=== PATIENT | male | born 1960 | race Caucasian/White ===

== ENCOUNTER → 2019-07-01 13:24 | Outpatient (CLI) | payer OTHER, SELFPAY ==
[2019-07-01 13:43] LABS: Hematocrit 44.3 % (41-53); Hemoglobin 15.1 g/dL (13.5-17.5); Mean Corpuscular Hemoglobin 32.3 PG (26-34); Mean Corpuscular Volume 95.1 fL (80-100); Platelet Count 277 X10^3/uL (150-400); Red Blood Cell Count 4.66 X10^6/uL (4.5-5.9); Red Cell Distribution Width 13.2 % (11.6-14.8); White Blood Cell Count 8.7 X10^3/uL (4.5-11.0)
[2019-07-01 13:46] LABS: Appearance Urine UA CLEAR; Bilirubin Urine UA NEGATIVE (NEGATIVE); Color Urine UA YELLOW; Glucose Urine UA NEGATIVE (Negative); Ketones Urine UA NEGATIVE (NEGATIVE); Leukocyte Esterase Urine UA NEGATIVE (NEGATIVE); Nitrite Urine UA POSITIVE (Negative); Occult Blood Urine UA NEGATIVE (Negative); Protein Urine UA TRACE (Negative); Urobilinogen Urine UA 0.2 E.U./dL (0.2)
[2019-07-01 14:01] LABS: Neutrophils Absolute Manual 6699 /uL (3000-5900); Total Cells Counted 100
[2019-07-01 14:02] LABS: Anisocytosis 1+
[2019-07-01 14:51] LABS: Alanine Aminotransferase 25 IU/L (21-72); Albumin 4.4 g/dL (3.5-5.0); Albumin Globulin Ratio 1.8 (1.0-2.8); Alkaline Phosphatase 52 U/L (38-126); Aspartate Aminotransferase 21 IU/L (17-59); BUN Creatinine Ratio 22.2 (6-22); Bilirubin Total 1.1 mg/dL (0.2-1.3); Blood Urea Nitrogen 20 mg/dL (9-20); Calcium 9.5 mg/dL (8.4-10.2); Carbon Dioxide 28 mmol/L (22-32); Chloride 103 mmol/L (98-107); Cholesterol 239 mg/dL (140-199); Estimated Glomerular Filt Rate > 60.0 mL/min (>60); Globulin 2.5 g/dL (1.7-4.1); Glucose 102 mg/dL (70-100); HDL Cholesterol 103 mg/dL (40-60); HEMOLYSIS < 15 (0-50); LDL Cholesterol Calculated 118 mg/dL (<100); Sodium 141 mmol/L (137-145); Total Protein 6.9 g/dL (6.3-8.2); Triglycerides 88 mg/dL (35-150)
[2019-07-01 14:53] LABS: Amorphous Sediment Urine 2+; Bacteria Urine Many (>30); RBC Urine None Seen (0-5/HPF); Squamous Epithelial Cell Urine 1-5 /HPF (0-5/HPF); WBC Urine 0-1/HPF (0-5/HPF)
[2019-07-01 14:54] LABS: Culture Indicated Urine Specimen Cultured
[2019-07-01 15:20] LABS: Prostate Specific Antigen Scrn 2.63 ng/mL (0.1-4.0)
== END ==
PROVIDERS: PCP Family Medicine; Visit Provider Family Medicine
DX: N40.0 Benign prostatic hyperplasia without lower urinary tract symptoms (principal); R33.9 Retention of urine, unspecified; Z12.5 Encounter for screening for malignant neoplasm of prostate; Z13.220 Encounter for screening for lipoid disorders; Z13.29 Encounter for screening for other suspected endocrine disorder; Z51.81 Encounter for therapeutic drug level monitoring
CPT/HCPCS: 36415; 80053; 80061; 81003; 81015; 84443; 85025; 87077; 87086; 87147; 87186; G0103

== ENCOUNTER → 2019-07-14 13:14 | Outpatient (CLI) | payer OTHER, SELFPAY ==
--- NOTE | 2019-07-14 | DI.US.S_ITS ---
PROCEDURE: US RENAL COMPLETE INDICATIONS: URINARY RETENTION TECHNIQUE: Real-time scanning was performed of the kidneys and bladder, with image documentation. COMPARISON: None. FINDINGS: Kidneys: Kidneys are normal in size. Right kidney measures 9.8 cm long; left kidney measures 13.3 cm long. Right renal cortical thickness is 1.4 cm; left renal cortical thickness is 1.3 cm. Renal cortical echotexture is normal. Left kidney inferior pole 7 mm calculus. No definite hydronephrosis. Left kidney and mild pelviectasis versus small parapelvic cyst. No suspicious solid mass lesions. Bladder: Pre-void bladder volume is 100 mL. Post-void residual is 74 mL. Pre-void images demonstrate no intraluminal masses or stones. The bladder wall appears trabeculated. On pre-void images, bilateral ureteral jets are noted with color Doppler interrogation. Miscellaneous: No free pelvic fluid. Prostatomegaly with median lobe hypertrophy. Prostate measuring 6.1 x 7.2 x 4.9 cm, estimated volume of 110 cc. IMPRESSION: 1. Postvoid residual of 74 cc. 2. Marked prostatomegaly. 3. No hydroureter. Probable left extrarenal pelvis versus small parapelvic cyst. 4. Nonobstructing calculus in the left kidney measuring 7 mm. Dictated by: José Morillo M.D. on 07/14/2019 at 16:21 Approved by: José Morillo M.D. on 07/14/2019 at 16:27
== END ==
PROVIDERS: PCP Family Medicine; Visit Provider Physician Assistant
DX: R33.9 Retention of urine, unspecified (principal); N40.0 Benign prostatic hyperplasia without lower urinary tract symptoms
CPT/HCPCS: 76770

== ENCOUNTER 2019-07-22 08:10 | Day surgery (SDC) | payer OTHER, SELFPAY ==
[2019-07-22] VITALS (8 sets, daily range): BP systolic 132–155; BP diastolic 75–96; PULSE 44–74; RESP 12–18; TEMP 35.6–36.3; O2SAT 95–100; BMI 23.6
--- NOTE | 2019-07-22 | PATH_ITS ---
[facility] Accession Number: [id number] . 01 Material submitted: . PART A: colon - COLON POLYP AT 50 CM PART B: colon - COLON POLYP AT 40 CM PART C: colon - COLON POLYP AT 25 CM . 02 Diagnosis: A. Colon at 50 cm, Polyp: Tubular adenoma. . B. Colon at 40 cm, Polyp: Tubular adenoma. . C. Colon at 25 cm, Polyp: Tubular adenoma. MRV/07/23/2019 . 02 Electronically signed: . Leonard Landaverde MD, PhD, Pathologist NPI- [id number] . 01 Gross description: . Part A: COLON POLYP AT 50 CM: Received in formalin are 3 fragment(s) of rae, soft tissue measuring 0.2 x 0.2 x 0.2 cm to 0.3 x 0.3 x 0.3 cm which is entirely submitted and submitted entirely in 1 cassette(s) Part B: COLON POLYP AT 40 CM: Received in formalin are 2 fragment(s) of rae, soft tissue measuring 0.2 x 0.2 x 0.2 cm to 0.5 x 0.2 x 0.2 cm which is entirely submitted and submitted entirely in 1 cassette(s) Part C: COLON POLYP AT 25 CM: Received in formalin are 3 fragment(s) of rae, soft tissue measuring 0.2 x 0.1 x 0.1 cm to 0.4 x 0.2 x 0.2 cm which is entirely submitted and submitted entirely in 1 cassette(s) /DMC /[facility] . 02 Pathologist provided ICD-10: D12.6 . 02 CPT . 163809, 826601, 213300 Performed at: [address], [place] [id number] MD Benitez Dumont MD Phone: [phone] Performed at: 02 [facility] [address] [place] [id number] MD Darcy Reyes MD Phone: [phone]
[2019-07-22] MEDS: SODIUM CHLORIDE 0.9% 1,000 ML 200 ML IV (10:30)
--- NOTE | 2019-07-22 11:09 | PM.PREOP ---
Pre-operative Note Interval Note History & Physical reviewed/Exam performed by Physician: Yes Changes to H&P: No H&P completed within 30 days and has changed as indicated here:: Please see office note from 07/01 ASA Class (for procedural sedation): I
[2019-07-22] MEDS: MIDAZOLAM 5 MG/5 ML VIAL IV (11:16)
[2019-07-22] MEDS: fentaNYL 250 MCG/5 ML INJ IV (11:16)
--- NOTE | 2019-07-22 12:09 | PM.OP.ENDO ---
Operative Date/Time/Diagnoses Date of procedure: 07/22/19 Time of procedure: 12:09 Pre-op diagnosis: Rectal bleeding Post-op diagnosis: same (Diverticulosis. Internal hemorrhoids.) Procedure & Clinicians Study performed: Colonoscopy with cold biopsy. Anoscopy with Two column hemorrhoid banding Same procedure as scheduled: Yes Indications: Rectal bleeding. Hemorrhoids. Surgeon: Candido Fleming Procedure Notes SCOAP/Timeout: Performed Procedure in detail: The patient was placed in the left lateral decubitus position and underwent IV sedation directed by the surgeon consisting of fentanyl and Versed. Digital exam was unremarkable. No masses or felt the prostate.. The scope was inserted and advanced through the rectum into the sigmoid, descending, transverse, and ascending colon. The patient was noted to have diverticulosis. In addition a polyp was seen at 50 cm biopsied and removed. The cecum was reached identified by the ileocecal valve and the appendiceal opening.. The scope was gradually brought out. Additional subcentimeter Polyps were found at 40 cm and 25 cm from the anal verge. The scope ultimately was retroflexed in the rectum. The appearance was remarkable for large internal hemorrhoids without ulceration.. The scope was removed and the patient tolerated the procedure well. Prep was good. Anoscope was inserted and circumferential exam performed. Patient had large internal hemorrhoids in left lateral and right posterior lateral positions(near posterior midline). Hemorrhoid bands were placed on these. Patient tolerated the procedure well. Scope withdrawal time: 16 minutes total Sedation minutes: 46 Findings: diverticulosis and polyp Specimen(s): other (Polyps) Complications: none Recommendations: Colonscopy in 5 years Follow up: weeks (2-3 weeks) Disposition: PACU
--- NOTE | 2019-07-22 13:01 | SUR.PHASEII ---
pt arrived to PACU and he was extremely diaphoretic. Oscar RN stated he had been very diaphoretic during whole procedure. Pt changed clothes and RN changed his sheets and gave him fresh warm blankets. pt states he feels okay. RN talked to him and told him we would like to watch him for about another 30 minutes. He agreed. he will be taking a taxi to [facility] and Dr. Locke stated it was okay for him to take taxi to [facility]. Will make sure he can tolerate fluids and warm him up.
--- NOTE | 2019-07-22 13:23 | SUR.PHASEII ---
Addendum entered by Trinity Raymond R.N. 07/22/19 13:26: Update given to Adam Gonzalez RN Original Note: 1315 VS taken per RN request, color pale, but improved. States that he feels better and that the nausea is improved but not resolved. declines dwayne carlyn, wants to rest longer. States he is active, resting heart rate is in his 40's
[2019-07-22] MEDS: ONDANSETRON 4 MG ODT 8 MG SL (13:40)
[2019-07-22] MEDS: SCOPOLAMINE 1 PATCH TOP (13:41)
--- NOTE | 2019-07-22 14:18 | SUR.PHASEII ---
pt DC to [facility] by taxi per ok from Dr. Fleming. Pt left facility in stable condition, vss.
== END 2019-07-22 14:18 | disposition home or self-care (01) ==
PROVIDERS: PCP Family Medicine; Visit Provider Specialist
PROC: 0DJD8ZZ Inspection of Lower Intestinal Tract, Via Natural or Artificial Opening Endoscopic (ICD-10-PCS; CPT 45378; principal; 2019-07-22 10:45)
DX: K62.5 Hemorrhage of anus and rectum (principal); D12.6 Benign neoplasm of colon, unspecified; K64.8 Other hemorrhoids; K57.30 Diverticulosis of large intestine without perforation or abscess without bleeding; Z87.891 Personal history of nicotine dependence
CPT/HCPCS: 45380; 46221; 99152; 99153; J2250; J3010